=== PATIENT | male | born 1985 | race Caucasian/White ===

== ENCOUNTER 2019-06-22 03:21 | Emergency (ER) | payer OTHER ==
[~2019-06-22] VITALS: Ht 182.9 cm; Wt 159.0 kg
[2019-06-22 03:22] VITALS: BP 156/91
[2019-06-22] MEDS ORDERED: ALBUTEROL/IPRATROPIUM 2.5MG/0.5MG, 3 ML ONE ×2 (03:45→04:31)
--- NOTE | 2019-06-22 03:51 | NUR ---
Patient ambulated into room, changed into gown. Midlevel provider to bedside, patient assessed and orders placed. RN into room, attached to monitor. Patient appears well kept, morbidily obese. Patient reports no medical history, but is hypertensive. Reports not visiting the doctor "for a while" RT to bedside. Awaiting response.
[2019-06-22] MEDS ORDERED: ALBUTEROL/IPRATROPIUM 2.5MG/0.5MG, 3 ML NPPB ONE (04:00)
[2019-06-22 04:05] LABS: RAPID INFLUENZA A Negative (Negative)
[2019-06-22 04:06] LABS: RAPID INFLUENZA B POSITIVE (Negative)
[2019-06-22] MEDS ORDERED: KETOROLAC 30 MG/1 ML ONE (04:19)
[2019-06-22] MEDS ORDERED: OSELTAMIVIR 75 MG CAPSULE ONE (04:19)
[2019-06-22] MEDS ORDERED: KETOROLAC 30 MG/1 ML IM ONE (04:30)
[2019-06-22] MEDS ORDERED: OSELTAMIVIR 75 MG CAPSULE PO ONE (04:30)
== END 2019-06-22 04:30 | disposition home or self-care (01) ==
LOC: ED 04:05
DX: J10.1 Influenza due to other identified influenza virus with other respiratory manifestations (principal)
CPT/HCPCS: 87400; 94640; 96372; 99283; J1885; J7620